=== PATIENT | male | born 1995 | race American Indian/Alaskan Native ===

== ENCOUNTER 2017-06-14 08:01 | Outpatient (CLI) | payer OTHER ==
--- NOTE | 2017-06-14 10:10 | Mammography Report ---
Left mammogram: CAD study utilized. No previous studies available. Findings: Predominance adipose tissue. No mass or microcalcification. Normal left axilla. Impression: Essentially negative left mammogram.
== END 2017-06-14 08:02 | disposition home or self-care (01) ==
LOC: US 08:01
PROVIDERS: ATTEND Student in an Organized Health Care Education/Training Program
DX: R92.8 Other abnormal and inconclusive findings on diagnostic imaging of breast (principal)
CPT/HCPCS: G0206-LT